=== PATIENT | female | born 1960 | race Caucasian/White ===

== ENCOUNTER 2017-07-29 13:05 | Emergency (ER) | payer BC ==
[2017-07-29] MEDS ORDERED: DIPHTH,PERTUSS(ACELL),TET VAC 0.5 ML VIAL IM ONE ×2 (13:48)
--- NOTE | 2017-07-29 13:49 | ERNOTE ---
Head Injury HPI - Narrative Date of Service: 07/29/17 - General Injury to: head Time Seen by Provider: 07/29/17 13:39 Source: patient, RN notes reviewed Exam Limitations: no limitations - Immun/Allergies/Home Medications Immunization: IMMUNIZATION HX Immunizations Up to Date Yes History of Influenza Vaccine Yes Hx Pneumococcal Vaccination No Allergies/Adverse Reactions: Allergies Allergy/AdvReac Type Severity Reaction Status Date / Time latex AdvReac Verified 07/29/17 13:18 Home Medications: HOME MEDICATIONS Ibuprofen 400 mg PO BID 07/29/17 [Last Taken Unknown] - History of Present Illness Narrative: Heather is a 57 year old female brought to the ED by private vehicle after falling off a counter stool backwards at a local diner and striking her head. She reports that the stool started to tip backwards and she was unable to regain her balance because her pants were slick. She denies LOC. She has a contusion/abrasion injury to her occipital scalp that is no longer bleeding. She is unsure of when her last tetanus vaccination was. Occurred: just prior to arrival Location Occurred: other Severity: mild Head Injury Location: occipital Method of Injury: Reports: fell Reason for Fall: Reports: lost balance Loss of Consciousness: Reports: no loss of consciousness, remembers event, remembers coming to hospital Associated Symptoms: Denies: nausea, vomiting, other injuries Review of Systems - Review of Systems Constitutional: Absent: recent illness, fever, malaise EYE: Absent: eye pain, vision changes ENT: Absent: ear discharge, nasal drainage Respiratory: Present: no symptoms reported Cardiology: Absent: chest pain, syncope Gastrointestinal/Abdominal: Absent: nausea, vomiting, abdominal pain Genitourinary: Present: no symptoms reported Musculoskeletal: Absent: neck pain, joint pain Skin: Absent: rash, lesions Neurological: Present: headache. Absent: dizziness/light-headedness Endocrine: Present: no symptoms reported Hematologic/Lymphatic: Absent: easy bruising, easy bleeding Psych: Present: no symptoms reported - Patient's Past Medical History Patient History - Medical: No pertinent hx Patient History - Cardiac/Respiratory: Hypertension Patient History - Cancer: No Hx of Cancer Patient History - Surgical Procedures: , Other Patient History - Other: None - Social History Living Situations: spouse Psych History: No pertinent hx Smoking Status: Never smoker Have you smoked in the past 12 months: No Do you dip or chew tobacco: No Patient requests Smoking Cessation Consult: No Initiate information on Smoking Cessation: No Alcohol Use: rarely Drug Use: none - Immunizations Immunizations Up to Date: No Hx Pneumococcal Vaccination: No History of Influenza Vaccine: Yes Physical Exam - Physical Exam General Appearance: Present: wd/wn, alert, mild distress, obese, other - Pleasant, appropriately dressed and groomed Head Exam: Present: contusions - Occipital scalp, with abrasion. Absent: active bleeding Eye Exam: Normal inspection: bilateral, PERRL: bilateral, EOMI: bilateral Ears, Nose, Throat: Present: normal ENT inspection, normal pharynx Neck: Present: normal inspection, nontender, supple, full range of motion. Absent: tender posterior midline Respiratory: Present: no respiratory distress, normal breath sounds, no accessory muscle use, lungs clear Cardiovascular/Chest: Present: regular rate, rhythm, no murmur Extremity Exam: Present: normal inspection, normal range of motion, no edema Neurological Exam: Present: alert, oriented, normal mood/affect, no motor/ sensory deficits Skin Exam: Present: normal color, warm/dry ED Progress - Vital Signs Patient's Vital Signs:: I have reviewed the patient's vital signs. Vital Signs: Vital Signs 07/29/17 13:12 Temperature 36.5 C Pulse Rate 95 Respiratory 14 Rate Blood Pressure 192/95 O2 Sat by Pulse 97 Oximetry - Progress/Reassessment Chief Complaint: Head Injury Progress:: Improved Departure Clinical Impression: Scalp contusion Qualifiers: Encounter type: initial encounter Qualified Code(s): S00.03XA - Contusion of scalp, initial encounter Closed head injury Qualifiers: Encounter type: initial encounter Qualified Code(s): S09.90XA - Unspecified injury of head, initial encounter - Departure Disposition: Home self-care Condition: Good Instructions: Head Injury, Adult, [id number] Additional Instructions: Ice to sore area Tylenol for headache Return for new/worsening symptoms Referrals: Aimee Vincent VISUAL MERCHANDISING ASSISTANT [Primary Care Provider] -
[2017-07-29 14:08] VITALS: BP 190/89
[2017-07-29] MEDS ORDERED: ACETAMINOPHEN 500 MG TABLET PO ONE (14:08)
== END 2017-07-29 14:17 | disposition home or self-care (01) ==
LOC: ER 13:05
DX: S00.03XA Contusion of scalp, initial encounter (principal); S00.01XA Abrasion of scalp, initial encounter; I10 Essential (primary) hypertension; W08.XXXA Fall from other furniture, initial encounter